=== PATIENT | male | born 1995 | race African-American/Black ===

== ENCOUNTER 2016-09-17 19:08 | Emergency (ER) | payer OTHER ==
[~2016-09-17] VITALS: Ht 167.6 cm; Wt 68.5 kg
[~2016-09-17 19:08] MED LIST: COLACE100 MG PO; ZANTAC 150MG T150 MG PO
[2016-09-17 19:10] VITALS: BP 130/81
[2016-09-17] MEDS ORDERED: SINUS MED (19:13)
[2016-09-17] MEDS ORDERED: TESSALON PERLE100 MG PO (19:35)
[2016-09-17] MEDS ORDERED: FLONASE 0.05%50 MCG NASAL (19:35)
[2016-09-17] MEDS ORDERED: SUDAFED 24-HOU240 MG PO (19:35)
== END 2016-09-17 19:52 ==
LOC: ER 19:08
DX: J06.9 Acute upper respiratory infection, unspecified (principal)

== ENCOUNTER 2020-01-20 02:12 | Emergency (ER) | payer OTHER ==
[~2020-01-20] VITALS: Ht 167.6 cm; Wt 70.3 kg
[~2020-01-20 02:12] MED LIST changes: +FLONASE 0.05%50 MCG NASAL; +NAPROSYN500 MG PO; +SINUS MED; +SUDAFED 24-HOU240 MG PO; +TESSALON PERLE100 MG PO
[2020-01-20] MEDS ORDERED: NOHOMEMEDICATIONS (02:21)
[2020-01-20] MEDS ORDERED: NAPROSYN500 MG PO (03:09)
[2020-01-20 03:20] VITALS: BP 124/68
== END 2020-01-20 03:20 | disposition home or self-care (01) ==
LOC: ER 02:12
DX: F07.81 Postconcussional syndrome (principal); Z79.899 Other long term (current) drug therapy; Z88.1 Allergy status to other antibiotic agents; Z91.013 Allergy to seafood